=== PATIENT | female | born 1970 | race Caucasian/White ===

== ENCOUNTER 2016-03-26 18:40 | Emergency (ER) | payer OTHER ==
[2016-03-26 19:01] VITALS: TEMP 98.4
--- NOTE | 2016-03-26 19:12 | CPEKG ---
Heart Rate: 72 RR Interval: 833 P-R Interval: 168 QRSD Interval: 100 QT Interval: 376 QTC Interval: 412 P [place]: 56 QRS [place]: 43 T Wave [place]: 35 EKG Severity - NORMAL ECG - EKG Impression: SINUS RHYTHM Electronically Signed By: Carlos Israel 29-Mar-2016 13:11:16
[2016-03-26] MEDS ORDERED: FAMOTIDINE 20 MG in NS 100 ML IV ONE (19:23)
[2016-03-26] MEDS ORDERED: HYDROmorphONE/DILAUDID 1 MG/ML SYR IVP ONE ×2 (19:23→20:54)
[2016-03-26] MEDS ORDERED: NS 1,000 ML IV ONE (19:23)
[2016-03-26 19:27] LABS: % IMMATURE GRANULYOCYTES 0.3 % (0.0-1.1); ABSOLUTE IMMATURE GRANULOCYTES 0.02 10^3/uL (0.00-0.10); ADD DIFF? NO; ADD MORPH? NO; ADD SCAN? NO; ATYPICAL LYMPHOCYTE FLAG 10 (0-99); FRAGMENT RBC FLAG 0 (0-99); HEMATOCRIT 38.1 % (38.0-47.0); HEMOGLOBIN 12.1 g/dL (12.6-16.3); LEFT SHIFT FLG 0 (0-99); LIPEMIA HEMOLYSIS FLAG 80 (0-99); MEAN CELL HEMOGLOBIN 23.4 pg (27.9-34.1); MEAN CELL HEMOGLOBIN CONCENTR. 31.8 g/dL (32.4-36.7); MEAN CELL VOLUME 73.6 fL (81.5-99.8); MEAN PLATELET VOLUME 10.4 fL (8.7-11.7); PLATELET CLUMPS FLAG 0 (0-99); PLATELET COUNT 276 10^3/uL (150-400); RED BLOOD CELL COUNT 5.18 10^6/uL (4.18-5.33); RED CELL DISTRIBUTION WIDTH 16.3 % (11.5-15.2)
--- NOTE | 2016-03-26 19:28 | UCPHY ---
H & P Time Seen by Provider: 03/26/16 18:58 Patient Type: New HPI/ROS: HPI Upper abdominal pain. 45-year-old female by private vehicle. She complains of left upper quadrant abdominal pain since this morning. She describes it as crampy and achy in nature. She has had associated nausea but no vomiting. Her last bowel movement was earlier today and this was normal. No bloody or melenic stool. Last meal was at lunch. She reports she has also had some chest tightness but she thinks this is from anxiety. This has resolved now that she is in the urgent care. Prior abdominal surgical history includes cholecystectomy, and C- section. She does have a prior history of pancreatitis. ROS: Constitutional: No fever, no chills. No weakness. Eyes: No discharge. No changes in vision. ENT: No sore throat. No nasal congestion or rhinorrhea. Respiratory: No cough. No shortness of breath. Cardiac: No chest pain, no palpitations. Gastrointestinal: No abdominal pain, no vomiting, no diarrhea. Genitourinary: No hematuria. No dysuria or increased frequency with urination. Musculoskeletal: No back pain. No neck pain. No myalgias or arthralgias. Skin: No rashes. Neurological: No headache. No focal weakness or altered sensation. Past medical history: Cholecystectomy, , pancreatitis, kidney stones. Social history: Here by herself. Physical Exam: General Appearance: Alert, no distress. Mildly anxious. This patient is responding to questions appropriately and in full sentences. This patient appears well-hydrated and well-nourished. Eyes: Pupils equal and round no pallor or injection. No lid edema, erythema or injection. Respiratory: There are no retractions, lungs are clear to auscultation with good air movement bilaterally. Cardiovascular: Regular rate and rhythm. No murmur. Gastrointestinal: Abdomen is soft with mild and vague tenderness left upper quadrant over the stomach, no masses, bowel sounds normal. No focal tenderness at McBurney's point. No Rehman sign. Neurological: Motor sensory function is grossly intact. Cranial nerves are normal. Gait is normal. Skin: Warm and dry, no rashes. Musculoskeletal: Neck is supple and nontender. Extremities are symmetrical. All joints range without pain or impingement. Psychiatric: No agitation. No depression. Database: EKG: EKG time is 7:10 p.m.; EKG shows a narrow complex normal sinus rhythm with a ventricular rate of 72. The AL, QRS, QT intervals are within normal limits. There are no ST-T wave changes indicative of ischemic or injury pattern. No evidence of right heart strain. Interpreted by me. Imaging: Upright abdominal series x-ray: No evidence of obstructive pattern. No free air. No other significant pathology. Interpreted by me. Procedures: Emergency department course: IV placed. She was placed on a monitor. She was started on IV normal saline with 1 L to be given over 1 hour. She was initially given 20 mg of IV Pepcid and 0.5 mg of IV hydromorphone. Appropriate blood work sent. 8:50 p.m., patient re-evaluated. she states she is still having some left upper quadrant discomfort. Results of her laboratory work discussed. Repeat abdominal exam she was again soft and without significant tenderness on the left upper quadrant. She was given an additional 0.5 mg of IV hydromorphone. An upright abdominal series x-ray has been ordered. 9:45 p.m., patient re-evaluated. Resting comfortably at this time. She denies any significant pain at this time. Vital signs reviewed and are normal. She is afebrile. Results of her blood work and urinalysis and x-ray discussed again. Repeat abdominal exam she is soft, nontender nondistended. She states that she feels better. She feels comfortable going home and I feel she is safe for discharge. Follow-up and return to Urgent Care precautions discussed with her. All of her questions were answered. She was discharged in good condition. Differential Diagnosis: The differential diagnosis on this patient includes but is not limited to gastritis, pancreatitis. Perforated peptic ulcer, volvulus, colitis, pulmonary embolism, pneumonia unlikely. This represents a partial list of diagnoses considered. These considerations are based on history, physical exam, past history, reassessment and diagnostic testing. Smoking Status: Never smoked Constitutional: Initial Vital Signs Temperature (C) 36.9 C 03/26/16 18:56 Heart Rate 82 03/26/16 18:56 Respiratory Rate 16 03/26/16 18:56 Blood Pressure 94/60 L 03/26/16 18:56 O2 Sat (%) 99 03/26/16 18:56 O2 Delivery Mode Room Air Allergies/Adverse Reactions: sumatriptan [From Imitrex] Allergy (Severe, Verified 03/26/16 19:01) Anaphylaxis sumatriptan succinate [From Imitrex] Allergy (Severe, Verified 03/26/16 19:01) Anaphylaxis hydrocodone [Hydrocodone] Allergy (Intermediate, Verified 03/26/16 19:01) Other-Enter Comments hydrocodone bitartrate [From Vicodin] Allergy (Intermediate, Verified 03/26/16 19:01) Other-Enter Comments sulfamethoxazole [From Bactrim DS] Allergy (Unknown, Verified 03/26/16 19:) Unknown trimethoprim [From Bactrim DS] Allergy (Unknown, Verified 03/26/16 19:01) Unknown Home Medications: Medication Instructions Recorded Dicyclomine [Bentyl 10 MG (*)] 10 mg PO DAILY PRN 12/13/14 ISOMETHEPT/ACETAMINOP/DICHLPHN 2 cap PO DAILY PRN 12/13/14 [MIDRIN CAPSULE] ALPRAZolam [Xanax 0.25 MG (*)] 0.25 mg PO DAILY PRN 07/08/15 Ondansetron Odt [Zofran Odt 4 mg 4 mg PO Q4PRN PRN #10 tab 03/26/16 (*)] Medical Decision Making - Data Points Laboratory Results: Laboratory Results 03/26/16 19:00 03/26/16 19:00 03/26/16 03/26/16 20:30 19:00 WBC 7.31 10^3/uL (3.80-9.50) RBC 5.18 10^6/uL (4.18-5.33) Hgb 12.1 L g/dL (12.6-16.3) Hct 38.1 % (38.0-47.0) MCV 73.6 L fL (81.5-99.8) MCH 23.4 L pg (27.9-34.1) MCHC 31.8 L g/dL (32.4-36.7) RDW 16.3 H % (11.5-15.2) Plt Count 276 10^3/uL (150-400) MPV 10.4 fL (8.7-11.7) Neut % (Auto) 55.0 % (39.3-74.2) Lymph % (Auto) 34.1 % (15.0-45.0) [place] % (Auto) 8.9 % (4.5-13.0) Eos % (Auto) 1.4 % (0.6-7.6) Baso % (Auto) 0.3 % (0.3-1.7) Nucleat RBC Rel Count 0.0 % (0.0-0.2) Absolute Neuts (auto) 4.03 10^3/uL (1.70-6.50) Absolute Lymphs (auto) 2.49 10^3/uL (1.00-3.00) Absolute Monos (auto) 0.65 10^3/uL (0.30-0.80) Absolute Eos (auto) 0.10 10^3/uL (0.03-0.40) Absolute Basos (auto) 0.02 10^3/uL (0.02-0.10) Absolute Nucleated RBC 0.00 10^3/uL (0-0.01) Immature Gran % 0.3 % (0.0-1.1) Immature Gran # 0.02 10^3/uL (0.00-0.10) Sodium 140 mEq/L (134-144) Potassium 3.8 mEq/L (3.5-5.2) Chloride 105 mEq/L (97-110) Carbon Dioxide 25 mEq/l (22-31) Anion Gap 10 mEq/L (8-16) BUN 11 mg/dL (7-23) Creatinine 0.6 mg/dL (0.6-1.0) Estimated GFR > 60 Glucose 88 mg/dL (70-100) Calcium 9.4 mg/dL (8.5-10.4) Total Bilirubin 0.4 mg/dL (0.1-1.4) Conjugated Bilirubin 0.4 mg/dL (0.0-0.5) Unconjugated Bilirubin 0.0 mg/dL (0.0-1.1) AST 13 L IU/L (14-46) ALT 22 IU/L (9-52) Alkaline Phosphatase 82 IU/L (38-126) Total Protein 7.0 g/dL (6.3-8.2) Albumin 3.7 g/dL (3.5-5.0) Lipase 104.0 IU/L (23-300) Urine Color YELLOW Urine Appearance HAZY Urine pH 8.0 H (5.0-7.5) Ur Specific [place] 1.020 (1.002-1.030) Urine Protein NEGATIVE (NEGATIVE) Urine Ketones NEGATIVE (NEGATIVE) Urine Blood NEGATIVE (NEGATIVE) Urine Nitrate NEGATIVE (NEGATIVE) Urine Bilirubin NEGATIVE (NEGATIVE) Urine Urobilinogen 0.2 EU (0.2-1.0) Ur Leukocyte Esterase NEGATIVE (NEGATIVE) Ur Culture Indicated? NOT INDICATED (NI) Urine Glucose NEGATIVE (NEGATIVE) Urine Test NEGATIVE Medications Given: Discontinued Medications Hydromorphone HCl (Dilaudid) 0.5 mg IVP EDNOW ONE Stop: 03/26/16 19:24 Last Admin: 03/26/16 19:35 Dose: 0.5 mg Hydromorphone HCl (Dilaudid) 0.5 mg IVP EDNOW ONE Stop: 03/26/16 20:55 Last Admin: 03/26/16 21:05 Dose: 0.5 mg Sodium Chloride (Ns) 1,000 mls @ 0 mls/hr IV ONCE ONE PRN Reason: Wide Open Stop: 03/26/16 19:24 Last Admin: 03/26/16 19:35 Dose: 1,000 mls Famotidine 20 mg/ Sodium (Chloride) 102 mls @ 408 mls/hr IV EDNOW ONE Stop: 03/26/16 19:37 Last Admin: 03/26/16 19:35 Dose: 102 mls Ondansetron HCl (Zofran Odt 4 Mg Prepack#2) 1 btl TAKEHOME EDNOW ONE Stop: 03/26/16 20:49 Last Admin: 03/26/16 20:58 Dose: 1 btl Departure - Departure Disposition: Home, Routine, Self-Care Clinical Impression: Upper abdominal pain, Gastritis Condition: Good Instructions: Ondansetron (By mouth), Gastritis (ED), Acute Abdominal Pain (ED) Additional Instructions: Read and follow provided instructions. Avoid fatty and spicy foods. Follow-up with your primary care physician in 1-2 days for re-evaluation. Take medication as prescribed. Return to the emergency department for worsening pain, fever, vomiting or other serious concerns. Referrals: EDUARDO MCPHERSON [Primary Care Provider] - As per Instructions Prescriptions: Ondansetron Odt [Zofran Odt 4 mg (*)] 4 mg PO Q4PRN PRN #10 tab PRN Reason: For Nausea & Vomiting - PQRS PQRS Measurement: Not applicable.
[2016-03-26 19:34] LABS: ALANINE AMINOTRANSFERASE 22 IU/L (9-52); ALBUMIN 3.7 g/dL (3.5-5.0); ALKALINE PHOSPHATASE 82 IU/L (38-126); ANION GAP 10 mEq/L (8-16); ASPARTATE AMINOTRANSFERASE 13 IU/L (14-46); BILIRUBIN,TOTAL 0.4 mg/dL (0.1-1.4); BILIRUBIN-CONJUGATED 0.4 mg/dL (0.0-0.5); CALCIUM 9.4 mg/dL (8.5-10.4); CARBON DIOXIDE 25 mEq/l (22-31); CHLORIDE 105 mEq/L (97-110); CREATININE 0.6 mg/dL (0.6-1.0); GLOMERULAR FILTRATION RATE > 60; GLUCOSE 88 mg/dL (70-100); POTASSIUM 3.8 mEq/L (3.5-5.2); SODIUM 140 mEq/L (134-144)
[2016-03-26 20:40] LABS: COLOR YELLOW; LEUKOCYTE ESTERASE,URINE NEGATIVE (NEGATIVE); NITRITE,URINE NEGATIVE (NEGATIVE)
[2016-03-26] MEDS ORDERED: ONDANSETRON 4MG PREPACK#2 BTL TAKEHOME ONE (20:48)
[2016-03-26] MEDS ORDERED: HYDROmorphONE/DILAUDID 1 MG/ML SYR ONE (20:54)
[2016-03-26 22:08] VITALS: BP 95/65; PULSE 83; RESP 16; O2SAT 95
--- NOTE | 2016-03-26 22:16 | DX ---
Single View Abdomen Indication: Abdominal pain. Comparison: CT July 08, 2015. FINDINGS: Surgical clips are seen in the gallbladder fossa. The bowel gas pattern exhibits a modera te amount of bowel gas, without definite air-fluid levels or obstruction. Bones are grossly unremark able. IMPRESSIONS 1. Prior cholecystectomy. 2. No evidence of obstruction.
== END 2016-03-26 21:59 | disposition home or self-care (01) ==
LOC: CED 18:40
DX: K29.70 Gastritis, unspecified, without bleeding (principal); F41.9 Anxiety disorder, unspecified; Z87.442 Personal history of urinary calculi
CPT/HCPCS: 74000-PO; 80048-PO; 80076-PO; 81003-PO; 81025-PO; 83690-PO; 85025-PO; 93010-PO; 96361-PO; 96374-PO; 96375-PO; 96376-PO; 99203-PO; G0463-PO; J1170